=== PATIENT | female | born 1990 | race Caucasian/White ===

== ENCOUNTER → 2020-10-02 15:13 | Outpatient (CLI) | payer OTHER, SELFPAY ==
--- NOTE | ~2020-10-02 | US_ITS ---
EXAMINATION: US transvaginal DATE: 10/02/2020 15:59 INDICATION: Pelvic pain. TECHNIQUE: Multiple transvaginal sonographic images of the pelvis were obtained. COMPARISON: Ultrasound 08/30/2017 FINDINGS: The uterus measures 6.0 x 3.7 x 3.9 cm. There is no free fluid in the pelvis. The endometrial complex measures 3 mm in thickness. The right ovary measures 1.9 x 1.7 x 2.3 cm. The left ovary measures 1.9 x 1.3 x 1.7 cm. There is normal vascular flow in the ovaries. IMPRESSION: 1. Normal pelvis. Reviewed, dictated and finalized at location A. IMPRESSION: 1. Normal pelvis.
== END ==
DX: R10.2 Pelvic and perineal pain (principal)
CPT/HCPCS: 76830

== ENCOUNTER → 2022-04-05 11:22 | Outpatient (CLI) | payer OTHER, SELFPAY ==
--- NOTE | ~2022-04-05 | US_ITS ---
US axilla RT 04/05/2022 11:50 Indication: Right axillary mass. Procedure: High-resolution ultrasound of the right axilla Comparison: No prior studies for comparison. Findings: There is normal heterogeneous echotexture within the right axilla. There are multiple tito l-appearing lymph nodes which retain their normal fatty hilum, largest measuring 1.3 cm. No suspiciou s masses to suggest malignancy. Impression: 1: Normal right axillary lymph nodes. No suspicious masses. Reviewed, dictated and finalized at location A. WEAR STITCHER Impression: 1: Normal right axillary lymph nodes. No suspicious masses.
== END ==
PROVIDERS: PCP Hospitalist; Visit Provider Hospitalist
DX: R22.31 Localized swelling, mass and lump, right upper limb (principal)
CPT/HCPCS: 76882

== ENCOUNTER 2023-08-01 10:22 | Outpatient (CLI) | payer OTHER, SELFPAY ==
--- NOTE | ~2023-08-01 | US_ITS ---
EXAMINATION: US transvaginal DATE: 08/01/2023 10:49 INDICATION: Pelvic pain Comparison:10/03/2019 TECHNIQUE: Multiple endovaginal sonographic images of the pelvis performed. FINDINGS: The uterus measures 6.7 x 4.3 x 4.1 cm. Uterus is retroverted. The endometrial complex yessica ures 8 mm. The right ovary measures 2.5 x 1.5 x 1.9 cm and the left ovary measures 3.5 x 1.2 x 3.2 cm. There ar e small follicles in each ovary. Normal doppler signal in both ovaries. There is no free fluid in the pelvis. There are no abnormal masses seen on either side. IMPRESSION: 1. Unremarkable pelvic ultrasound. Reviewed, dictated and finalized at location B.
== END 2023-08-01 10:23 ==
PROVIDERS: PCP Hospitalist; Visit Provider Nurse Practitioner
DX: R10.2 Pelvic and perineal pain (principal)
CPT/HCPCS: 76830

== ENCOUNTER 2024-06-05 08:18 | Outpatient (CLI) | payer BC, SELFPAY ==
--- NOTE | ~2024-06-05 | US_ITS ---
EXAMINATION: US right upper quadrant DATE: 06/05/2024 09:29 INDICATION: Abdominal pain TECHNIQUE: Multiple grayscale and Doppler ultrasound images of the abdomen were obtained. COMPARISON: None FINDINGS: The pancreatic head and body are normal in appearance. The pancreatic tail is not visualized. The vi sualized proximal to mid abdominal aorta and inferior vena cava are normal. Liver has normal echogeni city and contour, with a smooth surface. No liver lesion identified. No intrahepatic biliary duct dil ation suspected. Portal venous flow was seen in the hepatopetal, normal direction and has normal Dopp ler waveform. There are a few small echogenic nonshadowing nonmobile likely polyps along the wall of the otherwise normal gallbladder measuring up to 6 mm in maximal diameter. No shadowing cholelithiasi s. Common bile duct measures 3 to 4 mm maximal diameter which is normal. Sonographic Suarez sign was reported as negative by the medical office supervisor. IMPRESSION: 1. A few small likely benign gallbladder polyps measuring up to 6 mm which require no further follow- up. Otherwise normal right upper quadrant ultrasound. Reviewed, dictated and finalized at location A. IMPRESSION: 1. A few small likely benign gallbladder polyps measuring up to 6 mm which requ laine no further follow-up. Otherwise normal right upper quadrant ultrasound.
== END 2024-06-05 08:19 | disposition home or self-care (01) ==
PROVIDERS: PCP Hospitalist
DX: R10.9 Unspecified abdominal pain (principal); R11.0 Nausea; R17 Unspecified jaundice; K82.4 Cholesterolosis of gallbladder
CPT/HCPCS: 76705

== ENCOUNTER 2024-08-17 18:22 | Emergency (ER) | payer BC, SELFPAY ==
[2024-08-17] VITALS (8 sets, daily range): BP systolic 102–129; BP diastolic 76–90; PULSE 89–109; RESP 16–18; TEMP 36.7; O2SAT 99–100
--- NOTE | ~2024-08-17 | US_ITS ---
EXAM: RENAL ULTRASOUND HISTORY: Right flank pain COMPARISON: Right flank pain, renal calculi suspected clinically FINDINGS: RIGHT KIDNEY: 9.5 x 3.8 x 4.4 cm. The parenchyma of the right kidney is unremarkable in echogenicity. No hydronephrosis or renal calculi. LEFT KIDNEY: 10.9 x 5.1 x 4.3 cm No hydronephrosis or renal calculi. The parenchyma of the left kidney is unremarkable in echogenicity. BLADDER: Decompressed, limiting its evaluation. IMPRESSION: Unremarkable sonographic evaluation of the bilateral kidneys above. Reviewed, dictated and finalized at location A.
[2024-08-17 18:45] LABS: Basophils Absolute Auto 0.1 K/mm3 (0.0-0.1); Basophils Percent Auto 0.5 % (0.2-1.2); Eosinophils Absolute Auto 0.1 K/mm3 (0-0.3); Eosinophils Percent Auto 0.8 % (0-4.4); Hematocrit 42.5 % (37.0-47.0); Hemoglobin 14.1 g/dL (12.0-15.0); Immature Granulocyte Absolute 0.04 K/mm3 (0.00-0.031); Immature Granulocyte Percent A 0.4 % (0-0.5); Lymphocytes Absolute Auto 4.15 K/mm3 (0.9-3.2); Lymphocytes Percent Auto 38.8 % (18.3-44.2); Mean Corpuscular HGB Conc 33.2 g/dl (32-36); Mean Corpuscular Volume 84.3 fl (80-100); Monocytes Absolute Auto 1.4 K/mm3 (0.1-0.6); Monocytes Percent Auto 12.8 % (2.6-8.5); Neutrophils Percent Auto 46.7 % (45.5-73.1); Platelet Count Result 298 k/mm3 (150-375); Red Blood Count 5.04 M/mm3 (4.2-5.4); Red Cell Distribution Width 12.9 % (11.5-14.5); White Blood Count 10.7 K/mm3 (4.5-10.0)
[2024-08-17 18:46] LABS: Add Urine Microscopic? NO; Appearance Urine Clear (Clear); Bilirubin Urine Negative (Negative); Blood Urine Negative (Negative); Color Urine Yellow (Yellow); Glucose Urine UA Negative (Negative); Ketones Urine Negative (Negative); Leukocyte Esterase Ur Negative LEU/UL (Negative); Nitrate Urine Negative (Negative); Protein Urine Negative (Negative); Specific Grav Ur 1.009 (1.001-1.035); Urobilinogen Urine 0.2 mg/dL (<2.0); pH Urine 5.5 (5.0-9.0)
--- OUTSIDE RECORDS SUMMARY | 2024-08-17 18:54 | XMS_ITS | Clinical Summary ---
Author Organization [facility] Address [address] [place] [address] Care Team Providers Care Front Desk Agent Name Role Phone Deborah Wall MD Primary Care Provider [phone] Source Comments [facility],non-owned Affiliates and Associated Physician Practices is amultiple site organization consisting of ambulatory clinics and hospital sitesin [place], [place], [place] and [place]. This disclosure is being madepursuant to the Care Everywhere program and may not contain all information available regarding this patient. Last updated 17.[facility] Allergies No known active allergies Medications * Be aware that medications may not be up to date on this document. Alwaysverify current medications with the patient. busPIRone (BUSPAR) 10 MG tablet TK ONE T PO BID 1 05/09/2015 Active Active Problems Problem Noted Date Diagnosed Date Diarrhea, unspecified 11/09/2015 Family History Medical History Relation Name Comments Cancer Maternal Grandfather colon c ancer Alzheimer's Disease Maternal Grandmother Relation Name Status Comments Father Alive Maternal Grandfather Maternal Grandmother Mother Alive Sister Alive x2 Social History Tobacco Use Types Packs/Day Years Used Date Smoking Tobacco: Never Smokeless Tobacco: Never Alcohol Use Standard Drinks/Week Comments No 0 (1 standard drink = 0.6 oz pur e alcohol) Comments No Sex and Gender Information Value Date Recorded Sex Assigned at Not on file Legal Sex Female 9:36 AM CDT Gender Identity Not on file Sexual Orientation Not on file Last Filed Vital Signs Vital Sign Reading Time Taken Comments Blood Pressure 108/64 02/25/2018 3:15 PM GLASS TECHNOLOGIST Pulse 100 02/25/2018 3:15 PM GLASS TECHNOLOGIST Temperature 36.7 C (98.1 F) 02/25/2018 3:15 PM GLASS TECHNOLOGIST Respiratory Rate 16 02/25/2018 3:15 PM GLASS TECHNOLOGIST Oxygen Saturation 98% 02/25/2018 3:15 PM GLASS TECHNOLOGIST Inhaled Oxygen Concentration - - Weight 61.2 kg (135 lb) 02/25/2018 3:15 PM GLASS TECHNOLOGIST Height 165.1 cm (5' 5) 02/25/2018 3:15 PM GLASS TECHNOLOGIST Body Mass Index 22.47 02/25/2018 3:15 PM GLASS TECHNOLOGIST Plan of Treatment Health Maintenance Due Date Last Done Comments HIV SCREENING 2007 HEPATITIS C SCREENING 04/09/2010 DTAP/TDAP/TD VACCINES (1 - Tdap) 2011 HEPATITIS B VACCINE (1 of 3 - 19+ 3-dose series) 2011 PAP SMEAR 2013 COVID-19 VACCINE (1 - 2023-2 5 season) 2023 DEPRESSION SCREENING 03/03/2024 INFLUENZA VACCINE (Season Ended) 2024 ZOSTER VACCINE (1 of 2) 2042 HIB VACCINE Aged Out No longer eligi ble based on patient's age to complete this topic HPV VACCINE Aged Out No longer eligi ble based on patient's age to complete this topic MENINGOCOCCAL (Group B) VACC INE SHARED DECISION-MAKING Aged Out No longer eligibl e based on patient's age to complete this topic MENINGOCOCCAL GROUPS A/C/Y/W VACCINE Aged Out No longer eligible b ased on patient's age to complete this topic PNEUMOCOCCAL VACCINE Aged Out No long er eligible based on patient's age to complete this topic Insurance AET[employer] Care Teams Front Desk Agent Relationship Specialty Start Date End Date Deborah Wall MD [facility] [address] [place] [address] PCP - General Internal Medicine 08/30/15
--- OUTSIDE RECORDS SUMMARY | 2024-08-17 18:54 | XMS_ITS | Encounter Summary ---
Author Organization [facility] Address [address] [facility] [place] [address] Care Team Providers Care Electric Motor Repairing Supervisor Name Role Phone Deborah Wall MD Primary Care Provider [phone]- [phone] Encounter Details Date Type Department Care Team (Late Contact Info) Description 11/20/2022 Lab Requisition [facility] - DermPath Lab [address] [facility] [place] [id number] Antonio Valera Jr., MD [address] [facility] [address] [place] [address] Social History Tobacco Use Types Packs/Day Years Used Date Smoking Tobacco: Never Smokeless Tobacco: Never Alcohol Use Standard Drinks/Week Comments No 0 (1 standard drink = 0.6 oz pur e alcohol) Comments No Sex and Gender Information Value Date Recorded Sex Assigned at Not on file Legal Sex Female 9:36 AM CDT Gender Identity Not on file Sexual Orientation Not on file documented as of this encounter Functional Status * Is person deaf or have serious hearing difficulty? Answer Date of Assessment Author No 11/09/2015 12:26 PM CDT Neris Thakur RN * Is person blind or have serious difficulty seeing? Answer Date of Assessment Author No 11/09/2015 12:26 PM CDT Neris Thakur RN * Does person have serious difficulty walking/climbing stairs? Answer Date of Assessment Author No 11/09/2015 12:26 PM CDT Neris Thakur RN * Does person have difficulty dressing/bathing? Answer Date of Assessment Author No 11/09/2015 12:26 PM CDT Neris Thakur RN * Does person have difficulty doing errands alone? Answer Date of Assessment Author No 11/09/2015 12:26 PM CDT Neris Thakur RN documented as of this encounter Mental Status * Does person have difficulty concentrating/remembering/making decisions? Answer Entry Date Author No 11/09/2015 12:26 PM CDT Neris Thakur RN documented in this encounter Plan of Treatment Not on file documented as of this encounter Procedures Procedure Name Priority Date/Time Associated Diagnosis Comments DERMATOPATHOLOGY Routine 11/19/2022 12:0 0 AM CDT documented in this encounter Results * DERMATOPATHOLOGY (11/19/2022 12:00 AM CDT) Case Report Dermatopathology Report Case: [id number] Authorizing Provider: Antonio Valera Jr., MD Collected: 11/19/2022 12:00 AM Ordering Location: [facility] DermPath Lab Received: 11/20/2022 12:34 PM Pathologist: Amie Rosa MD Specimens: A) - Skin, left superior medial forehead B) - Skin, left medial superior chest 3 2:20 PM CDT DERMATOPATHOLOGY LABORATORY Final Diagnosis Specimen A. SKIN, left superior medial forehead: INTRADERMAL MELANOCYTIC NEVUS (D22.39) Specimen B. SKIN, left medial superior chest: INTRADERMAL MELANOCYTIC NEVUS (D22.5) 3 2:20 PM CDT DERMATOPATHOLOGY LABORATORY at 1420 CDT Clinical History A-B: Traumatized Nevus vs Neurofibroma vs SK 3 2:20 PM CDT DERMATOPATHOLOGY LABORATORY Gross Description Specimen A: Received is one formalin filled container labeled with the patient's name and designated left superior medial forehead. The specimen consists of a shave biopsy measuring 6x4x1 mm. Jar 0. Specimen B: Received is one formalin filled container labeled with the patient's name and designated left medial superior chest. The specimen consists of a shave biopsy measuring 6x3x2 mm. Jar 0. 3 2:20 PM CDT DERMATOPATHOLOGY LABORATORY Microscopic Description Specimen A. SKIN, left superior medial forehead: There are nests of cytologically bland melanocytes within the dermis that mature with depth. Specimen B. SKIN, left medial superior chest: There are nests of cytologically bland melanocytes within the dermis that mature with depth. 3 2:20 PM CDT DERMATOPATHOLOGY LABORATORY Disclaimer An external and internal positive and negative controls are appropriate for the histochemical, immunohistochemical and immunofluorescence stain(s) in this case (if any), except where stated explicitly. The performance characteristics of the stain(s) cited in this report were developed and its performance characteristic determined by the Dermatopathology Laboratory at [facility], directed by Dr. Ana Cristina Ray. These tests need not be, and therefore are not, approved by the [place] Food and Drug Administration. The tests are used for clinical purposes. Billing Codes Specimen Charges Stain Charges 03276 06746 1 1 3 2:20 PM CDT DERMATOPATHOLOGY LABORATORY Embedded Images 3 2:20 PM CDT DERMATOPATHOLOGY LABORATORY Pathology/Cytology TISSUE SPECIMEN FROM SKIN / Unknown 11/19/2022 11/20/2022 12:34 PM CDT Miscellaneous samples (specimen) TISSUE SPECIMEN FROM SKIN / Unknown 11/19/2022 11/20/2022 12:34 PM CDT Antonio Valera Jr., MD LAB - PATHOLOGY/CYTOLOG Y ORDERABLES Final Result DERMATOPATHOLOGY LABORATORY [facility] - Department of Dermatology [facility] Specialized Medicine [address] [place] [address], 3rd Floor [place], [place] [id number] [place] [address] documented in this encounter Visit Diagnoses Not on filedocumented in this encounter Care Teams Electric Motor Repairing Supervisor Relationship Specialty Start Date End Date Deborah Wall MD [address] [place] [address] [address] [place] [address] PCP - General Internal Medicine 08/30/15 documented as of this encounter
--- OUTSIDE RECORDS SUMMARY | 2024-08-17 18:55 | XMS_ITS | Encounter Summary ---
Author Organization [facility] Address [address] [facility] [place] [address] Care Team Providers Care Development Advisor Name Role Phone Deborah Wall MD Primary Care Provider [phone]- [phone] Encounter Details Date Type Department Care Team (Late Contact Info) Description 10/18/2022 Lab Requisition [facility] - DermPath Lab [address] [facility] [place] [id number] Antonio Valera Jr., MD [address] [facility] [address] [place] [address] Social History Tobacco Use Types Packs/Day Years [...] of Assessment Author No 11/09/2015 12:26 PM JANELLET Neris Thakur RN documented as of this encounter Mental Status * Does person have difficulty concentrating/remembering/making decisions? Answer Entry Date Author No 11/09/2015 12:26 PM CDT Neris Thakur RN documented in this encounter Plan of Treatment Not on file documented as of this encounter Procedures Procedure Name Priority Date/Time Associated Diagnosis Comments DERMATOPATHOLOGY Routine 10/17/2022 3:33 AM CDT documented in this encounter Results * DERMATOPATHOLOGY (10/17/2022 3:33 AM CDT) Case Report Dermatopathology Report Case: [id number] Authorizing Provider: Antonio Valera Jr., MD Collected: 10/17/2022 03:33 AM Ordering Location: [facility] DermPath Lab Received: 10/18/2022 02:05 PM Pathologist: Gianna Brush MD Specimens: A) - Skin, left superior lateral upper back B) - Skin, left superior medial upper back C) - Skin, left mid upper back D) - Skin, right superior edial upper back E) - Skin, right inferior medial upper back F) - Skin, right superior lateral mid back 3 2:51 PM CDT DERMATOPATHOLOGY LABORATORY Final Diagnosis Specimen A. SKIN, left superior lateral upper back: COMPOUND MELANOCYTIC NEVUS (D22.5) Specimen B. SKIN, left superior medial upper back: COMPOUND MELANOCYTIC NEVUS (D22.5) Specimen C. SKIN, left mid upper back: INTRADERMAL MELANOCYTIC NEVUS (D22.5) Specimen D. SKIN, right superior edial upper back: COMPOUND MELANOCYTIC NEVUS (D22.5) Specimen E. SKIN, right inferior medial upper back: INTRADERMAL MELANOCYTIC NEVUS WITH CONGENITAL FEATURES (D22.9) Specimen F. SKIN, right superior lateral mid back: INTRADERMAL MELANOCYTIC NEVUS (D22.5) 3 2:51 PM CDT DERMATOPATHOLOGY LABORATORY at 1451 CDT Clinical History A-F: Traumatized Nevus vs. Neurofibroma vs. Atypical Nevus. 3 2:51 PM T DERMATOPATHOLOGY LABORATORY Gross Description Specimen A: Received is one formalin filled container labeled with the patient's name and designated left superior lateral upper back. The specimen consists of a shave biopsy measuring 8x5x2 mm. Jar 0. Specimen B: Received is one formalin filled container labeled with the patient's name and designated left superior medial upper back. The specimen consists of a shave biopsy measuring 6x5x2 mm. Jar 0. Specimen C: Received is one formalin filled container labeled with the patient's name and designated left mid upper back. The specimen consists of a shave biopsy measuring 7x5x3 mm. Jar 0. Specimen D: Received is one formalin filled container labeled with the patient's name and designated right superior edial upper back. The specimen consists of a shave biopsy measuring 6x4x3 mm. Jar 0. Specimen E: Received is one formalin filled container labeled with the patient's name and designated right inferior medial upper back. The specimen consists of a shave biopsy measuring 5x5x2 mm. Jar 0. Specimen F: Received is one formalin filled container labeled with the patient's name and designated right superior lateral mid back. The specimen consists of a shave biopsy measuring 7x6x3 mm. Jar 0. 3 2:51 PM T DERMATOPATHOLOGY LABORATORY Microscopic Description Specimen A. SKIN, left superior lateral upper back: There are nests of melanocytes at the dermal-epidermal junction and within the dermis. Specimen B. SKIN, left superior medial upper back: There are nests of melanocytes at the dermal-epidermal junction and within the dermis. Specimen C. SKIN, left mid upper back: There are nests of cytologically bland melanocytes within the dermis that mature with depth. Specimen D. SKIN, right superior edial upper back: There are nests of melanocytes at the dermal-epidermal junction and within the dermis. Specimen E. SKIN, right inferior medial upper back: There are nests of cytologically bland melanocytes within the dermis. Some of these melanocytes are concentrated around blood vessels and adnexal structures. Specimen F. SKIN, right superior lateral mid back: There are nests of cytologically bland melanocytes within the dermis that mature with depth. 3 2:51 PM CDT DERMATOPATHOLOGY LABORATORY Disclaimer An external and internal positive and negative controls are appropriate for the histochemical, immunohistochemical and immunofluorescence stain(s) in this case (if any), except where stated explicitly. The performance characteristics of the stain(s) cited in this report were developed and its performance characteristic determined by the Dermatopathology Laboratory at [facility], directed by Dr. Ana Cristina Ray. These tests need not be, and therefore are not, approved by the [place] Food and Drug Administration. The tests are used for clinical purposes. Billing Codes Specimen Charges Stain Charges 50413 [id number] 1 1 1 1 1 1 3 2:51 PM CDT DERMATOPATHOLOGY LABORATORY Embedded Images 3 2:51 PM CDT DERMATOPATHOLOGY LABORATORY Pathology/Cytology TISSUE SPECIMEN FROM SKIN / Unknown 10/17/2022 3:33 AM CDT 10/18/2022 2:05 PM CDT Miscellaneous samples (specimen) TISSUE SPECIMEN FROM SKIN / Unknown 10/17/2022 3:33 AM CDT 10/18/2022 2:05 PM CDT Miscellaneous samples (specimen) TISSUE SPECIMEN FROM SKIN / Unknown 10/17/2022 3:33 AM CDT 10/18/2022 2:05 PM CDT Miscellaneous samples (specimen) TISSUE SPECIMEN FROM SKIN / Unknown 10/17/2022 3:33 AM CDT 10/18/2022 2:05 PM CDT Miscellaneous samples (specimen) TISSUE SPECIMEN FROM SKIN / Unknown 10/17/2022 3:33 AM CDT 10/18/2022 2:05 PM CDT Miscellaneous samples (specimen) TISSUE SPECIMEN FROM SKIN / Unknown 10/17/2022 3:33 AM CDT 10/18/2022 2:05 PM CDT us Antonio Valera Jr., MD LAB - PATHOLOGY/CYTOLOG Y ORDERABLES Final Result DERMATOPATHOLOGY LABORATORY [facility] - Department of Dermatology [address], [address] [phone] documented in this encounter Visit Diagnoses Not on filedocumented in this encounter Care Teams Development Advisor Relationship Specialty Start Date End Date Deborah Wall MD [facility] [address], [place] [address] PCP - General Internal Medicine 08/30/15 documented as of this encounter
--- OUTSIDE RECORDS SUMMARY | 2024-08-17 18:55 | XMS_ITS | Continuity of Care Document ---
Author Organization [facility] Address [address] [place] [address] Phone Care Team Providers Care Blocking Machine Tender Name Role Phone Calvin BENAVIDEZ, Lasha Unavailable [...] Diagnoses Date Provider Providers Copied on Encounter [email or web address], [address], [place], [place], [id number] , [place] tel: [phone] [facility] No Information 8 Bialeckdee Adamedakeshia. [address] [place] [address], [id number] , [place]. tel: [phone] [email or web address], [address], [place], [place], [id number] , [place] tel: [phone] [facility] HematocheziaMalais e 9 6 Bialecki Eldad. [address] [place] [address], [id number] , [place]. tel: [phone] Referring Provider: Deborah Wall, [address] [place] [address], [place], [address]. tel:[phone] [email or web address], [address], [place], [place], [id number] , tel: [phone] [facility] No Information 6 Calvin Colby. [address] [facility], [place], [place], [id number] , . tel: [phone] [email or web address], [address], [place], [place], [id number] , tel: [phone] [facility] blood in stool (chief complaint) Blood clots in stool 6 Calvin Colby. [address] [facility], [place], [place], [id number] , . tel: [phone] Referring Provider: Deborah Wall, [address] [facility] [address], [place], [address]. 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 since this month blood [...]
[2024-08-17 18:59] LABS: BEDSIDEPREGUCG Positive (Negative)
[2024-08-17 19:00] LABS: Platelet Estimate Adequate (Adequate)
[2024-08-17 19:01] LABS: Atypical Lymphocytes Present; Schistocytes None Seen
[2024-08-17 20:25] LABS: Alanine Aminotransferase 27 U/L (6-35); Albumin Level 4.8 g/dL (3.5-5.1); Alkaline Phosphatase 61 U/L (38-126); Anion Gap 12 mmol/L (4-12); Aspartate Amino Transferase 32 U/L (14-36); Bilirubin,Total 1.3 mg/dL (0.2-1.3); Blood Urea Nitrogen 8 mg/dL (7-17); Calcium 9.7 mg/dL (8.4-10.2); Carbon Dioxide 17 mmol/L (22-30); Chloride 106 mmol/L (98-107); Estimated Glomerular Filt Rate > 60; Glucose 96 mg/dL (65-110); Lipase 181 U/L (23-300); Potassium 3.7 mmol/L (3.4-5.0); Sodium 135 mmol/L (137-145); Total Protein 8.2 g/dL (6.3-8.2)
--- NOTE | 2024-08-17 21:00 | ED_ITS ---
HPI - Abdominal Pain General Chief Complaint: Abdominal Pain Stated Complaint: r flank pain, Time Seen by Provider: 08/17/24 18:41 Source: patient Mode of arrival: ambulatory Limitations: no limitations History of Present Illness HPI narrative: 34-year-old presently 4 weeks of gestation here with a complains of right flank pain since this afternoon. Patient states that 4 weeks ago she was similar pain and was diagnosed with kidney stone and she recently came to the she is . She denies any trauma. No history of nausea vomiting. Denies any blood in the urine. MD elicited complaint: flank pain Pertinent past history: other (Kidney stone) Onset (ago): day(s) (1) Pain Consistency: constant Location: none Severity: mild Quality: aching Migration to: no migration Exacerbating factors: nothing Relieving factors: nothing Associated symptoms: denies other symptoms Related Data Allergies Allergy/AdvReac Type Severity Reaction Status Date / Time No Known Allergies Allergy Unverified 08/17/24 19:17 Review of Systems 2 Review of Systems: All systems reviewed & are unremarkable except as noted in HPI and below Constitutional: Constitutional: Reports no additional constitutional complaints Eyes: Eyes: Reports no additional eye complaints ENT: Reports system reviewed and no additional complaints, except as documented Cardiovascular: Cardiovascular: Reports no additional cardiovascular complaints Respiratory: Respiratory: Reports no additional respiratory complaints Gastrointestinal: Gastrointestinal: Reports as per HPI Genitourinary: Genitourinary: Reports no additional female genitourinary complaints Exam 2 Narrative: GENERAL: Well-appearing, well-nourished, and in no acute distress. HEAD: Normocephalic, atraumatic. EYES: PERRLA and EOMI. ENT: Nares clear, no rhinorrhea or epistaxis. Mucous membranes moist. NECK: Supple. CHEST: Clear to auscultation. No respiratory distress. HEART: Regular rate and rhythm. No murmur heard. Normal peripheral pulses. ABDOMEN: Soft, nontender, nondistended, normal active bowel sounds. EXTREMITIES: Normal range of motion. No edema. SKIN: Warm, dry, no rash. NEURO: No focal deficits. Alert and oriented x3. PSYCH: Normal mood and affect. Course Course Emergency Course: Notified patient about her lab work, ultrasound findings cause of her pain is unknown I did explain to has been the cause of her pain is on which she and able to do a CT scan. Has had lab work and urine looks clear advised Tylenol for pain as needed Vital Signs Vital signs: Vital Signs Temperature 36.7 C 08/17/24 18:40 Pulse Rate 109 H 08/17/24 18:40 Respiratory Rate 18 08/17/24 18:40 Blood Pressure 123/84 08/17/24 18:40 Pulse Oximetry 99 08/17/24 18:40 Temperature 36.7 C 08/17/24 18:40 Pulse Rate 89 08/17/24 20:31 Respiratory Rate 16 08/17/24 20:31 Blood Pressure 118/90 08/17/24 20:31 Pulse Oximetry 99 08/17/24 20:31 MDM - Abdominal Pain Lab Data 08/17/24 18:37 08/17/24 18:37 Labs: Lab Results 08/17/24 08/17/24 Range/Units 18:37 18:57 WBC 10.7 H (4.5-10.0) K/mm3 RBC 5.04 (4.2-5.4) M/mm3 Hgb 14.1 (12.0-15.0) g/dL Hct 42.5 (37.0-47.0) % MCV 84.3 (80-100) fl MCH 28.0 (26-34) pg MCHC 33.2 (32-36) g/dl RDW 12.9 (11.5-14.5) % Plt Count 298 (150-375) k/mm3 MPV 10.0 (7.4-10.4) fl Immature Gran % (Auto) 0.4 (0-0.5) % Neut % (Auto) 46.7 (45.5-73.1) % Lymph % (Auto) 38.8 (18.3-44.2) % [place] % (Auto) 12.8 H (2.6-8.5) % Eos % (Auto) 0.8 (0-4.4) % Baso % (Auto) 0.5 (0.2-1.2) % Lymph # (Auto) 4.15 H (0.9-3.2) K/mm3 [place] # (Auto) 1.4 H (0.1-0.6) K/mm3 Eos # (Auto) 0.1 (0-0.3) K/mm3 Baso # (Auto) 0.1 (0.0-0.1) K/mm3 Abs Immat Gran (auto) 0.04 H (0.00-0.031) K/mm3 Absolute Neuts (auto) 5.0 (1.3-6.7) K/mm3 Absolute Nucleated RBC 0.000 (0.0-0.012) K/mm3 Band Neutrophils % Not Reportable Nucleated RBC % 0.0 (0.0-0.2) % Atypical Lymphocytes Present Platelet Estimate Adequate (Adequate) Schistocytes None seen Sodium 135 L (137-145) mmol/L Potassium 3.7 (3.4-5.0) mmol/L Chloride 106 (98-107) mmol/L Carbon Dioxide 17 L (22-30) mmol/L Anion Gap 12 (4-12) mmol/L BUN 8 (7-17) mg/dL Creatinine 0.75 (0.7-1.0) mg/dL Estim Creat Clear Calc Not Reportable Estimated GFR > 60 (59 - ) Glucose 96 (65-110) mg/dL Calcium 9.7 (8.4-10.2) mg/dL Total Bilirubin 1.3 (0.2-1.3) mg/dL AST 32 (14-36) U/L ALT 27 (6-35) U/L Alkaline Phosphatase 61 (38-126) U/L Total Protein 8.2 (6.3-8.2) g/dL Albumin 4.8 (3.5-5.1) g/dL Lipase 181 (23-300) U/L Urine Color Yellow (Yellow) Urine Appearance Clear (Clear) Urine pH 5.5 (5.0-9.0) Ur Specific [place] 1.009 (1.001-1.035) Urine Protein Negative (Negative) mg/dL Urine Glucose (UA) Negative (Negative) mg/dL Urine Ketones Negative (Negative) mg/dL Ur Blood (Man) Negative (Negative) Urine Nitrate Negative (Negative) Urine Bilirubin Negative (Negative) Urine Urobilinogen 0.2 (<2.0) mg/dL Leukocyte Esterase Rfl Negative (Negative) EULALIO/UL POC Urine HCG, Qual Positive (Negative) Imaging Data Radiologist's impression: ITS Impressions Renal Ultrasound 08/17/24 20:43 IMPRESSION: Unremarkable sonographic evaluation of the bilateral kidneys above. Discharge Plan Discharge Clinical Impression: Flank pain in patient Patient Disposition: Home Condition: Stable Instructions: Flank Pain (ED) Additional Instructions: Can take Tylenol for pain as needed , Patient Language: Montenegrin Follow-up/Referrals: Viviana,MD Paolo [Primary Care Provider] - Time of Disposition: 21:01
== END 2024-08-17 21:10 | disposition home or self-care (01) ==
PROVIDERS: Physician Assistant; Emergency Provider Family Medicine; PCP Hospitalist
DX: O26.891 Other specified pregnancy related conditions, first trimester (principal); R10.9 Unspecified abdominal pain; Z87.442 Personal history of urinary calculi; Z3A.01 Less than 8 weeks gestation of pregnancy
CPT/HCPCS: 36415; 76775; 80053; 81003; 81025; 83690; 85025; 99284

== ENCOUNTER 2025-01-22 09:54 | Outpatient (CLI) | payer BC, SELFPAY ==
--- OUTSIDE RECORDS SUMMARY | 2017-10-03 06:16 | XMS_ITS | Continuity of Care Document ---
Author Organization [facility] Address [address] [place] [address] Phone Care Team Providers Care Seater Assembler Name Role Phone Calvin BENAVIDEZ, Lasha Unavailable Unavailable Allergies, Adverse Reactions, Alerts Substance Reaction Status Criticality No Known Allergies Active No Inform ation Medications Medication Instructions Dosage Effective Dates (start - stop) Status Comments Compazine 10 mg tablet take 1 tablet by oral route every 8 hours as needed, nausea - Active hydrocortisone 2.5 % rectal cream apply by topical route 2-3 times every day to the affected area(s) for 2 weeks - Active 2 weeks supply - please include applicator Advance Directives Directive Yes / No Effective Date File Name No Information Encounters Encounter Description Practice Location Reason(s) For Visit Diagnoses Date Provider Providers Copied on Encounter [facility], [address], [place], [place], [id number] , [place] tel: [phone] [facility] No Information 8 Bialeckdee Adamedakeshia. [address] [place] [address], [id number] , [place]. tel: [phone] [facility], [address], [place], [place], [id number] , [place] tel: [phone] [facility] HematocheziaMalais e 9 [address] B[address]. [address] [place] [address], [id number] , [place]. tel: [phone] Referring Provider: Deborah Wall, [address] [place] [address], [place], [address]. tel:[phone] [facility], [address], [place], [place], [id number] , tel: [phone] [facility] No Information 6 Calvin Colby. [address] [facility], [place], [place], [id number] , . tel: [phone] [facility], [address], [place], [place], [id number] , tel: [phone] [facility] blood in stool (chief complaint) Blood clots in stool 6 Calvin Colby. [address] [facility], [place], [place], [id number] , . tel: [phone] Referring Provider: Deborah Wall, [address] [facility] [address], [place], [address]. tel:[phone] Family History Family Member Type Diagnosis Age At Onset No Information Payers Payer name Insurance type Covered libertarian ID Authoriza tito(s) 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 since this month blood and mucus sent pic to doc, no stool, like a clot, small amount, no rectal pain. no constipation, smears. now bright red near stool. some cramping. blood in stool Functional Status Date Functional Assessmen t No Information Instructions Date Instruction Additional Infor tanner Discussed options an d agreed on sigmoidoscopy to better characterize situation and offer recomendations afterwards Related to Blood clots in stool Handout Assessments Type Assessment Date No Information Patient Care Teams Name Effective Dates (start - stop) Status Members No Information
--- OUTSIDE RECORDS SUMMARY | 2025-01-22 09:57 | XMS_ITS | Encounter Summary ---
Author Organization [facility] Health Address [address] [facility] [place] [address] Care Team Providers Care Non Licensed Operator Name Role Phone Deborah Wall MD Primary Care Provider [phone] Encounter Details Date Type Department Care Team (Late Contact Info) Description 11/20/2022 Lab Requisition [facility] - DermPath Lab [address] [facility], [place] [id number] Antonio Valera Jr., MD [address] [facility] [address] [place] [address] Social History Tobacco Use Types Packs/Day Years [...] AM CDT) Case Report Dermatopathology Report Case: [id number] Authorizing Provider: Antonio Valera Jr., MD Collected: 11/19/2022 12:00 AM Ordering Location: [facility] DermPath Lab Received: 11/20/2022 12:34 PM [...] characteristic determined by the Dermatopathology Laboratory at [facility], directed by Dr. Ana Cristina Ray. These tests need not be, and therefore are not, approved by the [place] Food and Drug Administration. The tests are used for clinical purposes. Billing Codes Specimen Charges Stain Charges 12495 13792 1 1 3 2:20 PM CDT DERMATOPATHOLOGY LABORATORY Embedded Images 3 2:20 PM CDT DERMATOPATHOLOGY LABORATORY Pathology/Cytology TISSUE SPECIMEN FROM SKIN / Unknown 11/19/2022 11/20/2022 12:34 PM CDT Miscellaneous samples (specimen) TISSUE SPECIMEN FROM SKIN / Unknown 11/19/2022 11/20/2022 12:34 PM CDT Antonio Valera Jr., MD LAB - PATHOLOGY/CYTOLOG Y ORDERABLES Final Result DERMATOPATHOLOGY LABORATORY [facility] - Department of Dermatology [facility] Specialized Medicine [address] [place] [address], 3rd Floor [place], [place] [id number] [place] [address] documented in this encounter Visit Diagnoses Not on filedocumented in this encounter Care Teams Non Licensed Operator Relationship Specialty Start Date End Date Deborah Wall MD [address] [place] [address] [address] [place] [address] PCP - General Internal Medicine 08/30/15 documented as of this encounter
--- OUTSIDE RECORDS SUMMARY | 2025-01-22 09:57 | XMS_ITS | Clinical Summary ---
Author Organization [facility] Address [facility] [place] [address] Care Team Providers Care Configuration Manager Name Role Phone Paolo Michelle MD Primary Care Provider [phone] Allergies No known active allergies Medications hydrOXYzine (ATARAX) 10 mg tabletIndicatio ns:Generalized anxiety disorder Take 1 tablet (10 mg total) by mouth every 8 (eight) hours as needed for anxiety 90 tablet 3 Active Additional Information Patient not taking.Reported on 11/02/2024 [id number] 6-dha 30 mg iron-1mg -200 mg capsule Take by mouth daily Active Active Problems Problem Noted Date Diagnosed Date Polyp of gallbladder 06/07/2024 Abdominal pain 05/31/2024 Assessment & Plan (05/31/2024 12:35 PM CDT): Occasional right upper quadrant pain, not able to eat, she is staying hydrated, and having diarrhea as well. Ordering CT of the abdomen with contrast to rule out gallbladder disease and kidney stone. Acute right flank pain 05/31/2024 Assessment & Plan (05/31/2024 12:36 PM CDT): Ordering CT to rule out kidney stone as well as gallbladder disease. Heating pad as needed. Increase fluids. Nausea 05/31/2024 Assessment & Plan (05/31/2024 12:36 PM CDT): Ordering CT to rule out gallbladder disease and kidney stone due to symptoms. Dizziness 06/03/2023 Assessment & Plan (06/03/2023 3:43 PM CDT): Patient reports no episodes of vertigo; feels disconnected, can occur randomly, lasting for about 20 minutes at a time Likely disassociation associated with severe anxiety Will start hydroxyzine 10 mg 4 episodes Other chest pain 06/03/2023 Assessment & Plan (06/03/2023 3:43 PM CDT): Occurs more frequently, wakes with chest pain; feels short of breath; given age, low concern for cardiac complications; will treat anxiety; if no improvement, would recommend follow-up for cardiology evaluation Generalized anxiety disorder 10/10/2020 Assessment & Plan (05/31/2024 12:35 PM CDT): Patient uses hydroxyzine 10 mg when needed, which works well. She is having more anxiety lately. Assessment & Plan (06/03/2023 3:42 PM CDT): Not well controlled, limited relief with BuSpar; prior treatment with counseling Patient has sensation feeling disconnected, chest pain Will start sertraline 50 mg daily, hydroxyzine 10 mg p.r.n. Assessment & Plan (04/01/2022 5:00 PM PHYSICIAN OFFICE SPECIALIST): Not well controlled, patient reports multiple stressors for the past 3 months, patient has started therapy; reports symptoms happened all at once, patient declines need for daily medication reports symptoms do not occur every day, but occur mainly in episodic fashion Will start hydroxyzine 10-20 mg b.i.d. as needed for panic attacks Assessment & Plan (04/23/2021 12:34 PM PHYSICIAN OFFICE SPECIALIST): Stable, well controlled; patient reports mood is well controlled on current medication Continue citalopram 10 mg daily Assessment & Plan (10/31/2020 3:25 PM CDT): Not well controlled, stresses been worsening Previously had excessive sedation on Paxil, limited relief with BuSpar Will start Celexa 10 mg daily, follow-up in approximately 1 month for response to therapy Patient is currently in counseling for anxiety Assessment & Plan (10/10/2020 1:44 PM CDT): Stable, well controlled Patient reports good response to Celexa 10 mg daily Will continue current doses patient reports that anxiety is well controlled Gastroesophageal reflux disease without esophagi tis 10/10/2020 Assessment & Plan (04/23/2021 12:34 PM PHYSICIAN OFFICE SPECIALIST): Stable, generally well controlled Patient reports does not have symptoms daily, most symptoms occur in the morning with some nausea as reflux Switch to Pepcid 40 mg, have patient take at night at bedtime to help with morning symptoms Assessment & Plan (10/10/2020 1:45 PM CDT): Stable, well controlled with Protonix 40 mg daily Continue current dose continue to monitor for signs or symptoms of worsening acid reflux Irritable bowel syndrome with constipation 06/30 Assessment & Plan (04/01/2022 4:59 PM PHYSICIAN OFFICE SPECIALIST): Not well controlled, continues to have significant constipation; patient reports approximately 2 bowel movements per week; patient currently on [id number]-qkl-mduhrzt treatments, does not remember types Patient reports previous use of Linzess, was not able to tolerate abdominal pain as a side effect Will work with patient to start regular bowel regimen; start with polyethylene glycol, 1 dose daily, senna 1 tablet b.i.d. May also add milk of magnesia p.r.n. Will continue to monitor Assessment & Plan (10/31/2020 3:25 PM CDT): Unclear stepping pain is due to IBS verses gynecological; will get complete pelvic ultrasound, review urinalysis; refer to gastroenterology as patient has had limited relief with Linzess Will decrease since as to 72 mcg as patient reports abdominal pain on higher dose Continue to monitor and follow up Assessment & Plan (10/10/2020 1:43 PM CDT): Continues to have some pain, especially when taking Linzess 145 mcg; will decrease to 72 mcg today Continue to evaluate for abdominal pain, referral to GI Assessment & Plan (06/30/2020 11:36 AM CDT): Not well controlled, patient has abdominal cramping on Trulance; will transition back to Linzess for patient Continue with dietary changes and regular exercise Dyslipidemia 06/30/2020 Assessment & Plan (04/23/2021 12:34 PM PHYSICIAN OFFICE SPECIALIST): Stable, well controlled; encouraged patient to work on low-fat high-fiber diet to reduce total cholesterol Assessment & Plan (06/30/2020 11:37 AM CDT): Reviewed POC lipid testing; elevated total and LDL cholesterol; HDL and Triglycerides WNL -will provide education on dietary and activity changes to reduce above levels and improve overall health Diarrhea, unspecified 11/09/2015 Comments Yes Encounters Date Type Department Care Team Description 01/05/2025 Orders Only [facility] Health Information Management [address] [place] [address] Scanning, Provider 12/08/2024 Orders Only [facility] Health Information Management [address] [place] [id number] Scanning, Provider 11/02/2024 12:00 PM CDT Office Visit [facility] Medical Group Count Includes [facility] Care at [address] [address] Masha Ding, SVITLANA Acute non-recurrent maxillary sinusitis (Primary Dx); Non-recurrent acute serous otitis media of both ears from Last 3 Months Immunizations Immunization Administration Dates Next Due DT 09/02/2006 DTaP 07/21/1997, 3,1992,08/15 Hep A, Pediatric 09/29/2007,09/02/2006 Hep B, Adolescent or Pediatric 10/15/2001,2001,07/21/1997 Influenza, Trivalent, Preser vative Free, Intramuscular 02/01/2015 Influenza, Unspecified 05/31/2024(Deferr ed: Patient Refused),04/23/2021(Deferred: Patient Refused),10/10/2020(Deferred: Patient Refused),03/03/2020(Deferred: Patient Refused),03/03/2020(Deferred: Patient Refused),03/03/2020(Deferred: Patient Refused),03/03/2020(Deferred: Patient Refused),10/02/2019(Deferred: Patient Refused),03/03/2019(Deferred: Patient Refused),03/03/2019(Deferred: Patient Refused),03/03/2019(Deferred: Patient Refused) MMR 07/21/1997,08/14/1993 OPV 07/21/1997, 3,1992,06/20 Tdap 09/09/2014,08/14/1993 Varicella 10/29/2012 Surgical History Surgery Date Site/Laterality Comments HIP SURGERY 03/03/2009 - 03/02/2010 Right bone tumor: removed, tumor Medical History Medical History Date Comments Hx Other Medical bone tumor Irritable bowel syndrome Anxiety 2012 Family History Medical History Relation Name Comments No Known Problems Father No Known Problems Mother Hypothyroidism Sister 1 No Known Problems Sister 2 Relation Name Status Comments Father Alive Mother Alive Sister 1 Alive Sister 2 Alive Social History Tobacco Use Types Packs/Day Years Used Date Smoking Tobacco: Never Smokeless Tobacco: Never Alcohol Use Standard Drinks/Week Comments Yes 0 (1 standard drink = 0.6 oz pur e alcohol) AUDIT-C Answer Date Recorded Q1: How often do you have a drink containing alc ohol? 2-4 times a month 09/12/2020 Q2: How many drinks containi ng alcohol do you have on a typical day when you are drinking? 1 or 2 09/12/2020 Q3: How often do you have si x or more drinks on one occasion? Less than monthly 09/12/2020 PHQ-2 Answer Date Recorded PHQ-2 Total Score (If total score is 3 or more points, staff should administer the PHQ-9) 1 05/31/2024 PHQ-9 Answer Date Recorded PHQ-9 Total Score 8 05/31/2024 Comments Yes Sex and Gender Information Value Date Recorded Sex Assigned at Not on file Legal Sex Female 10:47 AM PHYSICIAN OFFICE SPECIALIST Gender Identity Female 08/31/2021 2:56 PM CDT Sexual Orientation Not on file Obstetrics History Para Term AB IAB SAB Ectopic Multiple Livin g Live Births 2 1 1 1 Date Outcome GA Total Labor Labor/2nd/3rd Weight Sex Type Anes PTL Nay A1 A5 Name Clin Term Current Comments No complications during preg kevin Last Filed Vital Signs Vital Sign Reading Time Taken Comments Blood Pressure 109/73 11/02/2024 12:00 PM CDT Pulse 95 11/02/2024 12:00 PM CDT Temperature 36.6 C (97.8 F) 05/31/2024 11:20 AM CDT Respiratory Rate 18 11/02/2024 12:00 PM CDT Oxygen Saturation 99% 11/02/2024 12:00 PM CDT Inhaled Oxygen Concentration - - Weight 65.5 kg (144 lb 6.4 oz) 11/02/2024 12:00 PM CDT Height 165.1 cm (5' 5) 11/02/2024 12:00 PM CDT Body Mass Index 24.03 11/02/2024 12:00 PM CDT Plan of Treatment Health Maintenance Due Date Last Done Comments Varicella Vaccines (2 of 2 - 13+ 2-dose series) 11/26/2012 10/29/2012 HPV Vaccines (1 - 3-dose SCDM series) 2019 Cervical Cancer Screening 06/23/2021 06/23/2020 Regular Well Visit/Exam 18-64 06/30/2021 06/30/2020 DTaP/Tdap/Td Vaccine (6 - Td or Tdap) 09/09/2024 09/09/2014, 09/02/2006, 07/21/1997, Additional history exists Covid-19 Vaccine ( - 2024- season) 2024 11/13/2020, 10/16/2020 Influenza Vaccine (#1) 2024 02/01/2015 Depression Screening 05/31/2025 05/31/2024, 05/31/2024, 05/05/2023, Additional history exists Hepatitis B Screening Completed 10/15/2001 , 04/14/2001, 07/21/1997 Hepatitis C Screening Completed 05/31/2024 Pneumococcal vaccine <65 Aged Out No longer eligible based on patient's age to complete this topic Procedures Procedure Name Priority Date/Time Associated Diagnosis Comments SCAN - RADIOLOGY/IMAGING 01/05/2025 SCAN - RADIOLOGY/IMAGING 12/08/2024 HEPATITIS C ANTIBODY Routine 05/31/2024 11:55 AM CDT Encounter for hepatitis C screening test for low risk patient GENITAL FLUID PAP SMEAR, THIN PREP AND HPV Routine 06/23/2020 from Last 3 Months or Most Recently Relevant to Health Maintenance Results * SCAN - RADIOLOGY/IMAGING (01/05/2025) Anatomical Region Laterality Modality Other Provider Scanning Final Result * SCAN - RADIOLOGY/IMAGING (12/08/2024) Anatomical Region Laterality Modality Other Provider Scanning Final Result * Hepatitis C antibody Blood (05/31/2024 11:55 AM CDT) Hep C Ab Nonreactive Nonreactive Comment: Interpretive Data Nonreactive: Antibodies to HCV not detected. Does NOT exclude the possibility of recent exposure to HCV. Equivocal: Equivocal for HCV antibodies. Supplemental molecular testing will be automatically performed to determine infection status in accordance with current CDC screening recommendations. Reactive: Positive for HCV antibodies. This may represent current or past HCV infection. Supplemental molecular testing will be automatically performed to determine current infection status in accordance with current CDC screening recommendations. Interpretive data was last revised on 2019. Blood 05/31/2024 11:5 5 AM CDT 05/31/2024 8:47 PM CDT Gabrielle Ramirez NP LAB MICROBIOLOGY - GENE RAL ORDERABLES Final Result [facility] [address] Department [place] [address] * Genital fluid pap smear, thin prep and HPV (06/23/2020) 06/23/2020 Historical Provider LAB CYTOLOGY ORDERABLES F inal Result from Last 3 Months or Most Recently Relevant to Health Maintenance Insurance ACCESS CHOICE Care Teams Configuration Manager Relationship Specialty Start Date End [place] [address] PCP - General Family Medicine 06/30/20
--- OUTSIDE RECORDS SUMMARY | 2025-01-22 09:57 | XMS_ITS | Encounter Summary ---
Author Organization [facility] Health Address [address] [facility] [place] [address] Care Team Providers Care Passenger Car Conductor Name Role Phone Deborah Wall MD Primary Care Provider [phone]- [phone] Encounter Details Date Type Department Care Team (Late Contact Info) Description 10/18/2022 Lab Requisition [facility] - DermPath Lab [address] [facility], [place] [id number] Antonio Valera Jr., MD [address] [facility] [address] [place] [address] Social History Tobacco Use Types Packs/Day Years [...] AM CDT) Case Report Dermatopathology Report Case: [id number] Authorizing Provider: Antonio Valera Jr., MD Collected: 10/17/2022 03:33 AM Ordering Location: [facility] DermPath Lab Received: 10/18/2022 02:05 PM Pathologist: [...] characteristic determined by the Dermatopathology Laboratory at [facility], directed by Dr. Ana Cristina Ray. These tests need not be, and therefore are not, approved by the [place] Food and Drug Administration. The tests are used for clinical purposes. Billing Codes Specimen Charges Stain Charges 76067 87016 [id number] 1 1 1 1 1 1 3 [...] PATHOLOGY/CYTOLOG Y ORDERABLES Final Result DERMATOPATHOLOGY LABORATORY [facility] - Department of Dermatology [address], [address] [phone] documented in this encounter Visit Diagnoses Not on filedocumented in this encounter Care Teams Passenger Car Conductor Relationship Specialty Start Date End Date Deborah Wall MD [facility] [facility] [address], [place] [address] PCP - General Internal Medicine 08/30/15 documented as of this encounter
--- OUTSIDE RECORDS SUMMARY | 2025-01-22 09:57 | XMS_ITS | Clinical Summary ---
Author Organization [facility] Address [address] [place] [address] Care Team Providers Care Shotweld Operator Name Role Phone Deborah Wall MD Primary Care Provider [phone] Source Comments [facility],non-owned Affiliates and Associated Physician Practices is amultiple site organization consisting of ambulatory clinics and hospital sitesin [place], [place], [place] and [place]. This disclosure is being madepursuant to the Care Everywhere program and may not contain all information available regarding this patient. Last updated 17.[facility] Allergies No known active allergies Medications * [...] Comments Blood Pressure 108/64 02/25/2018 3:15 PM FUEL ASSEMBLER Pulse 100 02/25/2018 3:15 PM FUEL ASSEMBLER Temperature 36.7 C (98.1 F) 02/25/2018 3:15 PM FUEL ASSEMBLER Respiratory Rate 16 02/25/2018 3:15 PM FUEL ASSEMBLER Oxygen Saturation 98% 02/25/2018 3:15 PM FUEL ASSEMBLER Inhaled Oxygen Concentration - - Weight 61.2 kg (135 lb) 02/25/2018 3:15 PM FUEL ASSEMBLER Height 165.1 cm (5' 5) 02/25/2018 3:15 PM FUEL ASSEMBLER Body Mass Index 22.47 02/25/2018 3:15 PM FUEL ASSEMBLER Plan of Treatment Health Maintenance Due Date Last Done Comments HIV SCREENING 2007 HEPATITIS C SCREENING 04/09/2010 DTAP/TDAP/TD VACCINES (1 - Tdap) 2011 HEPATITIS B VACCINE (1 of 3 - 19+ 3-dose series) 2011 Cervical Cancer Screening 2013 PAP SMEAR 2013 HPV VACCINE (1 - 3-dose SCDM series) 2019 PAP with HPV 2022 DEPRESSION SCREENING 03/03/2024 COVID-19 VACCINE (1 - 2024-2 6 season) 2024 INFLUENZA VACCINE (#1) 2024 ZOSTER VACCINE (1 of 2) 2042 [...] complete this topic Insurance [employer] Care Teams Shotweld Operator Relationship Specialty Start Date End Date Deborah Wall MD [address] [place] [address] [id number] [address] PCP - General Internal Medicine 08/30/15
[2025-01-22 11:48] LABS: Hematocrit 36.5 % (37.0-47.0); Hemoglobin 12.1 g/dL (12.0-15.0); Mean Corpuscular HGB Conc 33.2 g/dl (32-36); Mean Corpuscular Hemoglobin 29.7 pg (26-34); Mean Corpuscular Volume 89.5 fl (80-100); Platelet Count Result 216 k/mm3 (150-375); Red Blood Count 4.08 M/mm3 (4.2-5.4); White Blood Count 12.0 K/mm3 (4.5-10.0)
[2025-01-22 12:08] LABS: Glucose 1 Hour PP 50gm Dose 133 mg/dL
[2025-01-22 12:36] LABS: Syphilis IgG/IgM Antibody Non-Reactive (Nonreactive)
[2025-01-22 12:48] LABS: HIV 1/2 Ab P24 Ag Result Negative (Negative)
== END 2025-01-22 09:55 | disposition home or self-care (01) ==
LOC: ANHLAB 09:55
PROVIDERS: PCP Hospitalist; Visit Provider Student in an Organized Health Care Education/Training Program
DX: Z34.90 Encounter for supervision of normal pregnancy, unspecified, unspecified trimester (principal); Z3A.00 Weeks of gestation of pregnancy not specified
CPT/HCPCS: 36415; 82947; 85027; 86593; 86703; G0432